=== PATIENT | female | born 1965 | race Two or more races ===

== ENCOUNTER 2025-01-06 22:53 | Emergency (ER) | payer OTHER ==
[~2025-01-06] VITALS: Ht 165.1 cm; Wt 85.3 kg
[2025-01-06 23:27] VITALS: BP 165/90; O2SAT 99
[2025-01-07] MEDS ORDERED: TETRACAINE HCL 20 DR/ML DROPS OP STA (00:49)
[2025-01-07] MEDS ORDERED: NAPHAZOLINE HCL/PHENIRAMINE 20 DR/ML DROPS OP STA (00:49)
[2025-01-07] MEDS ORDERED: GENTAMICIN SULFATE 0.15 MG/DR DROPS 5ML OP STA (00:50)
[2025-01-07] MEDS ORDERED: GENTAMICIN SULFATE 0.15 MG/DR DROPS 5ML OP ONE (00:53)
[2025-01-07] MEDS ORDERED: NAPHAZOLINE HCL/PHENIRAMINE 20 DR/ML DROPS OP ONE (00:53)
[2025-01-07] MEDS ORDERED: KETOROLAC TROMETHAMINE 10 MG TABLET PO STA (01:25)
[2025-01-07] MEDS ORDERED: KETO10TA2 PO (01:28)
[2025-01-07] MEDS ORDERED: KETOROLAC TROMETHAMINE 10 MG TABLET PO ONE (01:30)
[2025-01-07] MEDS ORDERED: [UNRECOGNIZED DRUG - OTHER] OP (01:30)
[2025-01-07] MEDS ORDERED: GENTAMICIN SULFA5 ML OP (01:30)
== END 2025-01-07 01:45 ==
LOC: ER 23:40
DX: H10.89 Other conjunctivitis (principal); Y77.11 Contact lens associated with adverse incidents